=== PATIENT | female | born 1990 | race African-American/Black ===

== ENCOUNTER 2016-07-09 18:35 | Emergency (ER) | payer OTHER ==
[~2016-07-09] VITALS: Ht 170.2 cm; Wt 129.0 kg
[~2016-07-09 18:35] MED LIST: Z.0.NO CURRENT MEDS
[2016-07-09 18:45] VITALS: BP 130/80; PULSE 95; RESP 16; TEMP 100.2; O2SAT 98
[2016-07-09] MEDS ORDERED: SODIUM CHLORIDE 0.9% FLUSH 5 ML FLUSH IVF PRN (19:45)
--- NOTE | 2016-07-09 19:48 | PD ---
HPI Chief Complaint: Abdominal Pain Time Seen by Provider: 19:19 Travel History International Travel<30 days: No Contact w/Intl Traveler<30days: No Traveled to known affect area: No History of Present Illness HPI The patient is a 25-year-old female that complains of generalized abdominal pain initially but the pain is now only in the left upper quadrant. She has had nausea for 3-4 weeks. She also has had a cough and congestion for a month. She has occasional, gradual onset headaches on and off for a month. She has not taken her temperature at home but likely has had a low-grade fever. She does have some pleuritic chest pain on the anterior sternal area. This hurts primarily when she coughs. The patient was admitted in the past for elevated liver enzymes. [facility] Past Medical History Medical History: Denies Significant Hx Cancer: No Cardiovascular Problems: No Diminished Hearing: No Endocrine: Yes (HYPOTHYROID) Genitourinary: No Implanted Vascular Access Dvce: No Musculoskeletal: No Neurologic: No Psychiatric: No Reproductive: No Respiratory: No Immunizations Current: Yes Thyroid Disease: Yes (HYPTHYROID) Tetanus Vaccination: > 5 Years PNEUMOCCOCAL Vaccine (Year): 2 ?: Not LMP: 06/19/16 : 0 Para: 0 Miscarriage: 0 : 0 Past Surgical History Other Surgery: Yes (SX REPAIR FX OF LEFT THUMB 2005) Social History Alcohol Use: No Tobacco Use: No Substance Use: No Allergies-Medications (Allergen,Severity, Reaction): Coded Allergies: No Known Allergies (Verified , 07/09/16) Reported Meds & Prescriptions Reported Meds & Active Scripts Active Reported No Current Meds (Miscellaneous Medication) Misc Review of Systems Except as stated in HPI: all other systems reviewed are Neg Physical Exam Narrative GENERAL: The patient is obese, alert, oriented 3 in no respiratory distress. Her vital signs show temperature 100.2 but otherwise normal. SKIN: Warm and dry. HEAD: Atraumatic. Normocephalic. EYES: Pupils equal and round. No scleral icterus. No injection or drainage. ENT: No nasal bleeding or discharge. Mucous membranes pink and moist. NECK: Trachea midline. No JVD. CARDIOVASCULAR: Regular rate and rhythm. No murmur appreciated. RESPIRATORY: No accessory muscle use. Clear to auscultation. Breath sounds equal bilaterally. GASTROINTESTINAL: Abdomen soft, non-tender, nondistended. Hepatic and splenic margins not palpable. No guarding or rebound is present. MUSCULOSKELETAL: No obvious deformities. No clubbing. No cyanosis. No edema. NEUROLOGICAL: Awake and alert. No obvious cranial nerve deficits. Motor grossly within normal limits. Normal speech. PSYCHIATRIC: Appropriate mood and affect; insight and judgment normal. Data Data Last Documented VS Vital Signs Date Time Temp Pulse Resp B/P Pulse Ox O2 Delivery O2 Flow Rate FiO2 07/09/16 20:00 90 16 112/60 97 Room Air 07/09/16 18:45 100.2 Orders Complete Blood Count With Diff (07/09/16 19:43) Comprehensive Metabolic Panel (07/09/16 19:43) Influenzae A/B Antigen (07/09/16 19:43) Urinalysis - C+S If Indicated (07/09/16 19:43) Chest, Pa & Lat (07/09/16 19:43) Sodium Chloride 0.9% Flush (Ns Flush) (07/09/16 19:45) Ed Urine Pregnancytest Poc (07/09/16 19:43) Labs Laboratory Tests Test 07/09/16 07/09/16 15:50 20:20 White Blood Count 6.0 TH/MM3 Red Blood Count 4.86 MIL/MM3 Hemoglobin 14.2 GM/DL Hematocrit 43.1 % Mean Corpuscular Volume 88.7 FL Mean Corpuscular Hemoglobin 29.3 PG Mean Corpuscular Hemoglobin 33.0 % Concent Red Cell Distribution Width 13.6 % Platelet Count 373 TH/MM3 Mean Platelet Volume 8.0 FL Neutrophils (%) (Auto) 45.7 % Lymphocytes (%) (Auto) 36.5 % Monocytes (%) (Auto) 16.3 % Eosinophils (%) (Auto) 0.7 % Basophils (%) (Auto) 0.8 % Neutrophils # (Auto) 2.8 TH/MM3 Lymphocytes # (Auto) 2.2 TH/MM3 Monocytes # (Auto) 1.0 TH/MM3 Eosinophils # (Auto) 0.0 TH/MM3 Basophils # (Auto) 0.0 TH/MM3 CBC Comment DIFF FINAL Differential Comment Urine Collection Type CLEAN CATCH Urine Color YELLOW Urine Turbidity CLEAR Urine pH 6.0 Urine Specific Cruger 1.028 Urine Protein NEG mg/dL Urine Glucose (UA) NEG mg/dL Urine Ketones NEG mg/dL Urine Occult Blood NEG Urine Nitrite NEG Urine Bilirubin NEG Urine Leukocyte Esterase NEG Urine Mucus RARE /lpf Microscopic Urinalysis Comment CULT NOT INDICATED Sodium Level 141 MEQ/L Potassium Level 3.7 MEQ/L Chloride Level 105 MEQ/L Carbon Dioxide Level 29.3 MEQ/L Anion Gap 7 MEQ/L Blood Urea Nitrogen 12 MG/DL Creatinine 0.80 MG/DL Estimat Glomerular Filtration 106 ML/MIN Rate Random Glucose 103 MG/DL Calcium Level 8.1 MG/DL Total Bilirubin 0.2 MG/DL Aspartate Amino Transf 82 U/L (AST/SGOT) Alanine Aminotransferase 109 U/L (ALT/SGPT) Alkaline Phosphatase 82 U/L Total Protein 7.4 GM/DL Albumin 3.1 GM/DL [facility] Medical Decision Making Medical Screen Exam Complete: Yes Emergency Medical Condition: Yes Medical Record Reviewed: Yes Interpretation(s) The influenza a/B is negative for influenza A and B. The urine test is negative. The urinalysis shows a specific gravity of 1.028 but is otherwise normal and culture is not indicated. The complete metabolic profile shows a calcium of 8.1, AST of 82, ALT of 109 and albumen 3.1 but is otherwise unremarkable. The CBC shows a white count of 6000 with 16% mononuclear cells but is otherwise normal. Differential Diagnosis Viral syndrome, pneumonia, bronchitis, electrolyte disorder, renal insufficiency , hypo-/hyperglycemia, flu syndrome, urinary tract infection Narrative Course The patient has a viral syndrome. Lack of any physical findings for bacterial illness plus the relatively low white count suggests a virus. The patient should rest, drink plenty of liquids. Because she has a slight elevation of the liver enzyme she should not take too much Tylenol. She still has a slight elevation of her liver enzymes and this may be residual of what she was admitted to the hospital for in the past. Her urine shows a fairly high specific gravity and she does need to drink more liquids. Plan: She should follow-up with a primary care physician next week. Diagnosis Primary Impression: Viral syndrome Additional Impression: Mild dehydration Additional Instructions: Follow-up with a primary care physician next week. Take Motrin and Tylenol. Do not take too much Tylenol because you do have a slight elevation of her liver enzymes. Increased Liquids, rest and time are what you should do for this virus. Med/Other Pt SpecificInfo: No Change to Meds Disposition: 01 DISCHARGE HOME Condition: Stable Sameer Trejo MD Jul 09, 2016 19:48
[2016-07-09 20:00] VITALS: BP 112/60; PULSE 90; RESP 16; O2SAT 97
[2016-07-09 20:06] LABS: BLOOD, URINE NEG (NEG); GLUCOSE,URINE NEG (NEG); KETONE, URINE NEG (NEG); NITRITE,URINE NEG (NEG)
[2016-07-09 20:11] LABS: AUTOMATED NEUTROPHIL # 2.8 TH/MM3 (1.8-7.7); BASOPHIL % 0.8 % (0.0-2.0); EOSINOPHIL % 0.7 % (0.0-4.0); HEMATOCRIT 43.1 % (35.0-46.0); HEMO FLAGS DIFF FINAL; LYMPH % 36.5 % (9.0-44.0); LYMPHOCYTE # 2.2 TH/MM3 (1.0-4.8); MEAN CELL VOLUME 88.7 FL (80.0-100.0); MEAN CORPUSCULAR HEMOGLOBIN 29.3 PG (27.0-34.0); METHOD OF COLLECTION CLEAN CATCH; MONO % 16.3 % (0.0-8.0); MUCUS URINE RARE /lpf (OCC); NEUT % 45.7 % (16.0-70.0); PLATELET COUNT 373 TH/MM3 (150-450); RED BLOOD COUNT 4.86 MIL/MM3 (4.00-5.30); RED CELL DISTRIBUTION WIDTH 13.6 % (11.6-17.2); URINE COLOR YELLOW (YELLW/STRAW)
[2016-07-09 20:12] LABS: COMMENT (UR) CULT NOT INDICATED; CULTURE IF INDICATED CULT NOT INDICATED
[2016-07-09 20:45] LABS: CHLORIDE 105 MEQ/L (98-107); POTASSIUM 3.7 MEQ/L (3.5-5.1); SODIUM (NA) 141 MEQ/L (136-145)
[2016-07-09 20:48] LABS: ANION GAP 7 MEQ/L (5-15); BICARBONATE 29.3 MEQ/L (21.0-32.0); BLOOD UREA NITROGEN 12 MG/DL (7-18)
[2016-07-09 20:51] LABS: ALT (GPT) 109 U/L (10-53); AST (GOT) 82 U/L (15-37); GLOMERULAR FILTRATION RATE 106 ML/MIN (>89)
--- NOTE | 2016-07-09 20:51 | RADHPO ---
EXAM DATE/TIME: 07/09/2016 19:56 [facility] COMPARISON: No previous studies available for comparison. INDICATIONS : Chest pains. MEDICAL HISTORY : None. SURGICAL HISTORY : None. ENCOUNTER: Initial ACUITY: 2 months PAIN SCORE: 8/10 LOCATION: Left chest FINDINGS: PA and lateral views of the chest demonstrate the lungs to be symmetrically aerated without evidence of mass, infiltrate or effusion. The cardiomediastinal contours are unremarkable. Osseous structure s are intact. CONCLUSION: No acute disease. Bart Carver MD on July 09, 2016 at 20:49 Board Certified Radiologist. This report was verified electronically.
[2016-07-09 20:53] LABS: TOTAL BILIRUBIN ADULT 0.2 MG/DL (0.2-1.0)
[2016-07-09 20:54] LABS: ALKALINE PHOSPHATASE 82 U/L (45-117)
[2016-07-09 21:00] VITALS: BP 107/70; PULSE 72; RESP 18; TEMP 98.9; O2SAT 98
== END 2016-07-09 21:26 | disposition home or self-care (01) ==
LOC: PHED 18:35
DX: B34.9 Viral infection, unspecified (principal); E86.0 Dehydration; E03.9 Hypothyroidism, unspecified
CPT/HCPCS: 71020; 80053; 81001; 84703; 85025; 87804; 99284

== ENCOUNTER 2017-05-04 22:08 | Emergency (ER) | payer OTHER ==
[2017-05-04 22:11] VITALS: BP 134/79; PULSE 121; RESP 20; TEMP 100; O2SAT 99
[2017-05-04] MEDS ORDERED: IBUPROFEN 800 MG TAB PO ONE (22:30)
[2017-05-04] MEDS ORDERED: MECLIZINE HCL 25 MG TAB PO ONE (22:30)
[2017-05-04] MEDS ORDERED: IBUP-232 PO (22:32)
[2017-05-04] MEDS ORDERED: MECL1TAB42 PO (22:32)
--- NOTE | 2017-05-04 22:35 | PD ---
HPI Chief Complaint: Cold / Flu Symptoms Time Seen by Provider: 22:24 Travel History International Travel<30 days: No Contact w/Intl Traveler<30days: No Traveled to known affect area: No History of Present Illness HPI 26-year-old black female presents to emergency department with a 2 day history of fever and chills, runny nose, cough, congestion, dizziness, vertigo, myalgias , arthralgias and general malaise. Some nausea but no vomiting. No abdominal pain or diarrhea. No dysuria or frequency. Symptoms are exacerbated by sitting up and moving. Some relief remaining still. She has not taking any medications at home. PFSH Past Medical History Medical History: Denies Significant Hx Cancer: No Cardiovascular Problems: No Diminished Hearing: No Endocrine: Yes (HYPOTHYROID) Genitourinary: No Implanted Vascular Access Dvce: No Musculoskeletal: No Neurologic: No Psychiatric: No Reproductive: No Respiratory: No Immunizations Current: Yes Thyroid Disease: Yes (HYPTHYROID) PNEUMOCCOCAL Vaccine (Year): 2 ?: Not LMP: 03/19/17 : 0 Para: 0 Miscarriage: 0 : 0 Past Surgical History Other Surgery: Yes (SX REPAIR FX OF LEFT THUMB 2005) Social History Alcohol Use: No Tobacco Use: No Substance Use: No Allergies-Medications (Allergen,Severity, Reaction): Coded Allergies: No Known Allergies (Verified , 07/09/16) Reported Meds & Prescriptions Reported Meds & Active Scripts Active Meclizine 25 (Meclizine HCl) 25 Mg Tab 50 Mg PO Q6HR Ibuprofen 600 Mg Tab 600 Mg PO Q6H PRN Reported No Current Meds (Miscellaneous Medication) Misc Review of Systems Except as stated in HPI: all other systems reviewed are Neg Physical Exam Narrative GENERAL: Well-developed, well-nourished in no acute distress. Nontoxic appearing. HEAD: Normocephalic, atraumatic. EYES: Pupils equal round and reactive. Extraocular motions intact. No scleral icterus. No injection or drainage. ENT: TMs clear without erythema. The external auditory canals clear. Nose: clear . Posterior pharynx is pink and moist. No tonsillar edema or exudate. Uvula midline. Airway patent. NECK: Trachea midline.Supple, nontender, moves head freely. No central bony tenderness or spasm. CARDIOVASCULAR: Regular rate and rhythm without murmurs, gallops, or rubs. RESPIRATORY: Clear to auscultation. Breath sounds equal bilaterally. No wheezes , rales, or rhonchi. GASTROINTESTINAL: Abdomen soft, non-tender, nondistended. No hepato-splenomegaly , or palpable masses. No guarding. EXTREMITIES: No clubbing, cyanosis, or edema. No joint tenderness, effusion, or edema noted. BACK: Nontender without deformity or crepitance. No flank tenderness. Data Data Last Documented VS Vital Signs Date Time Temp Pulse Resp B/P (MAP) Pulse Ox O2 Delivery O2 Flow Rate FiO2 05/04/17 22:11 100.0 121 20 134/79 (97) 99 Orders Orders Ibuprofen (Motrin) (05/04/17 22:30) Meclizine (Antivert) (05/04/17 22:30) Ed Discharge Order (05/04/17 22:30) MDM Medical Decision Making Medical Screen Exam Complete: Yes Emergency Medical Condition: Yes Medical Record Reviewed: Yes Differential Diagnosis MDM: High Differential diagnoses: Pneumonia, bronchitis, URI, asthma, RAD, legionnaire's disease, SARS, ARDS, influenza, bronchiolitis, RSV,PE,CHF Narrative Course This is influenza-like illness, dizziness Diagnosis Primary Impression: Influenza-like illness Additional Impression: Dizziness Patient Instructions: General Instructions Departure Forms: Tests/Procedures, Work Release Special Instructions: No work 3 days. Additional Instructions: Rest. Increase fluids. Afrin nasal spray for the next 4 days only. Motrin and meclizine. Follow-up with a medical doctor in one week. Return to the ER for emergencies. Med/Other Pt SpecificInfo: Prescription(s) given Scripts Meclizine HCl (Meclizine 25) 25 Mg Tab 50 MG PO Q6HR, #28 Prov: Zoë Farah DO 05/04/17 Ibuprofen (Ibuprofen) 600 Mg Tab 600 MG PO Q6H Y for Pain/Inflammation, #40 TAB 0 Refills Prov: Zoë Farah DO 05/04/17 Disposition: 01 DISCHARGE HOME Condition: Stable Bart De La Paz May 04, 2017 22:35
== END 2017-05-04 23:05 | disposition home or self-care (01) ==
LOC: NEPK 22:08
DX: J11.1 Influenza due to unidentified influenza virus with other respiratory manifestations (principal); R50.9 Fever, unspecified; R05 Cough; R42 Dizziness and giddiness; M79.1 Myalgia; M25.50 Pain in unspecified joint; R53.81 Other malaise; R11.0 Nausea; E03.9 Hypothyroidism, unspecified
CPT/HCPCS: 99284